=== PATIENT | male | born 2005 | race Caucasian/White ===

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

== ENCOUNTER 2024-09-30 19:37 | Outpatient (REF) | payer OTHER, SELFPAY ==
[2024-09-30 22:38] LABS: Calculated LDL 93 mg/dL (<100); Cholesterol 185 mg/dL (<200); HDL Cholesterol 75 mg/dL (>or=40); Triglyceride 85 mg/dL (<150)
[2024-09-30 23:38] LABS: C-Reactive Protein 3.58 mg/dL (<or=0.5)
[2024-10-02 11:14] LABS: Hepatitis C Ab w Rflx HCV PCR Negative (Negative)
[2024-10-02 11:21] LABS: HIV-1/2 Ag & Ab Screen Negative (Negative)
[2024-10-08 03:28] LABS: Testosterone, Free 138.9 pg/mL (35.0-155.0)
== END 2024-09-30 19:38 | disposition home or self-care (01) ==
LOC: NCHCN 19:37
PROVIDERS: PCP Internal Medicine; Visit Provider Internal Medicine
DX: N50.0 Atrophy of testis (principal); Z13.220 Encounter for screening for lipoid disorders
CPT/HCPCS: 80061; 84402; 84403; 86803; 87389; 86140